=== PATIENT | female | born 1985 | race Caucasian/White ===

== ENCOUNTER 2016-06-23 13:36 | Emergency (ER) | payer MEDICAID ==
[~2016-06-23] VITALS: Ht 172.7 cm; Wt 59.5 kg
[~2016-06-23 13:36] MED LIST: AZIT250T94 PO; PREN1TAB49; TYL500 PO; [UNRECOGNIZED DRUG - REMARK]
[2016-06-23 14:14] VITALS: Ht 172.7 cm; Wt 59.5 kg
--- NOTE | 2016-06-23 15:51 | ERA ---
ER Documentation Chief Complaint Date/Time DATE: 06/23/16 TIME: 15:49 Chief Complaint VAG BLEED X2 DAYS, LMP 05/13/16, FOUND OUT YESTERDAY HPI 30-year-old female with a chief complaint of vaginal bleeding who is in her first trimester (). Last menstrual period was May 13, 2016. Patient had similar symptoms in her previous . Patient describes the bleeding as spotting and minimal. Pt denies discharge, pruritus of vaginal area , rash, medication use, alcohol or drug abuse, abdominal pain, dysuria, hematuria, weight loss, fevers, nausea, vomiting, diarrhea, constipation, hyperhidrosis, rigors, fatigue, difficulty breathing or chest pain. ROS All systems reviewed and are negative except as per history of present illness. Medications Home Meds Active Scripts Azithromycin* (Zithromax*) 250 Mg Tablet, 250 MG PO .ZPACK DIRECTED, #6 TAB TAKE 500 MG (2 TABS) THE FIRST DAY THEN 250 MG (1 TAB) DAYS 2-5 Prov:JOCELYN TYSON MD 05/06/15 Acetaminophen* (Tylenol*) 500 Mg Tab, 500 MG PO Q4H Y for MILD PAIN LEVEL 1-3, # 16 TAB Prov:JOCELYN TYSON MD 05/06/15 Reported Medications [Antibiotic?] TAB No Conflict Check 11/20/09 Vits W-Ca,Fe,Fa(<1MG) () 1 Tab Tablet 11/20/09 Allergies Allergies: Coded Allergies: No Known Drug Allergies (Verified Allergy, Mild, 11/19/09) PMhx/Soc Medical and Surgical Hx: pt denies Medical Hx, pt denies Surgical Hx Hx Alcohol Use: No Hx Substance Use: No Hx Tobacco Use: No Physical Exam Vitals Vital Signs Date Time Temp Pulse Resp B/P Pulse Ox O2 Delivery O2 Flow Rate FiO2 06/23/16 14:14 97.5 80 20 97/57 98 Physical Exam Const: Well-appearing 30-year-old female who is with last menstrual period May 03, 2016. In no acute distress. Head: Atraumatic Eyes: Normal Conjunctiva ENT: Normal External Ears, Nose and Mouth. Neck: Full range of motion..~ No meningismus. Resp: Clear to auscultation bilaterally Cardio: Regular rate and rhythm, no murmurs Abd: Soft, non tender, non distended. Normal bowel sounds Skin: No petechiae or rashes Back: No midline or flank tenderness Ext: No cyanosis, or edema Neur: Awake and alert Psych: Normal Mood and Affect Result Diagram: 06/23/16 1615 Results 24 hrs Laboratory Tests Test 06/23/16 16:15 White Blood Count 7.110^3/ul Red Blood Count 4.6710^6/ul Hemoglobin 14.1g/dl Hematocrit 42.4% Mean Corpuscular Volume 90.8fl Mean Corpuscular Hemoglobin 30.2pg Mean Corpuscular Hemoglobin Concent 33.3g/dl Red Cell Distribution Width 13.0% Platelet Count 57832^3/UL Mean Platelet Volume 10.9fl Neutrophils % 59.0% Lymphocytes % 31.4% Monocytes % 7.1% Eosinophils % 1.8% Basophils % 0.6% Nucleated Red Blood Cells % 0.0/100WBC Neutrophils # 4.210^3/ul Lymphocytes # 2.210^3/ul Monocytes # 0.510^3/ul Eosinophils # 0.110^3/ul Basophils # 0.010^3/ul Nucleated Red Blood Cells # 0.010^3/ul Prothrombin Time 12.9Sec Prothrombin Time Ratio 1.0 INR International Normalized Ratio 0.97 Activated Partial Thromboplast Time 28.9Sec Urine Color LT. YELLOW Urine Clarity CLEAR Urine pH 6.5 Urine Specific Malone 1.015 Urine Ketones NEGATIVE Urine Nitrite NEGATIVE Urine Bilirubin NEGATIVE Urine Urobilinogen 0.2 E.U./dL Urine Leukocyte Esterase NEGATIVE Urine Hemoglobin NEGATIVE Urine Glucose NEGATIVE% Urine Total Protein NEGATIVE Procedures/MDM 30-year-old female presenting with last menstrual period May 13, 2016 and diagnosis of 1 day ago. Patient has a chief complaint of spotting x12 hours. Ultrasound and labs was unremarkable. Suggesting patient return 48 hours to either the emergency department or with [employer] P levels. Will be discharged with lab values and ultrasound results. Patient will be given return precautions and advised to avoid vaginal penetration and practice bedrest for the next 48 hours. Departure Diagnosis: Primary Impression: Threatened in early Condition: Stable Additional Instructions: Follow up with your PCP within the next 1-3 days for a more thorough evaluation and a possible referral to a specialist. Return the the emergency department immediately if symptoms worsen or change. If you have any questions regarding medications, ask your pharmacist or us before you leave. If any adverse reactions occur while taking your medications, discontinue the treatment and return to the emergency department immediately. Take your medications as directed, and complete the entire course of treatment. SAQIB CARLSON PA-C Jun 23, 2016 15:51
[2016-06-23 16:28] LABS: ADD SCAN DIFF NO
[2016-06-23 16:35] LABS: ADD UMIC NO; BASOPHILS % 0.6 % (0.0-2.0); EOSINOPHILS # 0.1 10^3/ul (0.0-0.5); EOSINOPHILS % 1.8 % (0.0-7.0); HEMATOCRIT 42.4 % (37.0-47.0); HEMOGLOBIN 14.1 g/dl (12.0-16.0); LYMPHOCYTES # 2.2 10^3/ul (0.8-2.9); LYMPHOCYTES % 31.4 % (15.0-51.0); MEAN CORPUSCULAR HEMOGLOBIN 30.2 pg (29.0-33.0); MEAN CORPUSCULAR HGB CONC 33.3 g/dl (32.0-37.0); MEAN CORPUSCULAR VOLUME 90.8 fl (82.0-101.0); MEAN PLATELET VOLUME 10.9 fl (7.4-10.4); MONOCYTE # 0.5 10^3/ul (0.3-0.9); MONOCYTES % 7.1 % (0.0-11.0); NEUTROPHIL # 4.2 10^3/ul (1.6-7.5); PLATELET COUNT 218 10^3/UL (140-415); RED BLOOD COUNT 4.67 10^6/ul (4.20-5.40); URINE BILIRUBIN (Dip) NEGATIVE (NEGATIVE); URINE BLOOD (Dip) NEGATIVE (NEGATIVE); URINE COLOR LT. YELLOW (YELLOW); URINE GLUCOSE (Dip) NEGATIVE (NEGATIVE); URINE KETONES (Dip) NEGATIVE (NEGATIVE); URINE LEUKOCYTE ESTERASE (Dip) NEGATIVE (NEGATIVE); URINE NITRITE (Dip) NEGATIVE (NEGATIVE); URINE TOTAL PROTEIN (Dip) NEGATIVE (NEGATIVE); URINE UROBILINOGEN (Dip) 0.2 E.U./dL (0.1-1.0); WHITE BLOOD COUNT 7.1 10^3/ul (4.8-10.8)
[2016-06-23 16:47] LABS: INR 0.97; PROTIME 12.9 Sec (12.2-14.2)
[2016-06-23 16:48] LABS: PARTIAL THROMBOPLASTIN TIME 28.9 Sec (25.0-35.0)
--- NOTE | 2016-06-23 16:50 | RADRPT ---
PROCEDURE: US Pelvis. CLINICAL INDICATION: vaginal bleeding TECHNIQUE: Multiple sonographic images of the pelvis were obtained utilizing a transabdominal and endovaginal technique. The images were reviewed on a PACS workstation. COMPARISON: None. FINDINGS: The uterus is normal in size and demonstrates a normal appearance of the myometrium. The endometria l stripe is homogeneous in appearance and has the thickness of 11 mm. No intrauterine gestation is noted. The ovaries are normal in size and echogenicity. Normal Doppler flow is identified in both ovaries. The right ovary measures 2.8 x 1.6 cm. The left ovary measures 3.0 x 1.8 cm. No free fluid is present within the pelvis.. RPTAT: AA IMPRESSION: No intrauterine gestation visualized. Differential diagnosis includes early , missed or ectopic . Follow-up ultrasound and HCG levels is recommended. .Te Alba MD, Date Time Electronically viewed and signed by .Te Alba MD, on 06/23/2016 16:50 .S/
== END 2016-06-23 17:25 | disposition home or self-care (01) ==
LOC: FTE 13:36
DX: O20.0 Threatened abortion (principal); Z3A.00 Weeks of gestation of pregnancy not specified
CPT/HCPCS: 36415; 76801; 76817; 81003; 84702; 85025; 85610; 85730; 86900; 86901; Z7502

== ENCOUNTER 2017-05-11 19:54 | Emergency (ER) | END 2017-05-11 22:42 | disposition left against medical advice (07) ==